=== PATIENT | female | born 1985 | race Caucasian/White ===

== ENCOUNTER 2024-08-14 06:30 | Inpatient (IN) ==
[2024-08-14] MEDS ORDERED: LIDOCAINE 1% LOCAL 20 ML VIAL INFIL PRN (06:54)
--- NOTE | 2024-08-14 06:55 | History & Physical Report ---
Date of Service August 14, 2024 History of Present Illness Chief Complaint: contractions Primary Care Provider: NO PCP Allergies Allergy/AdvReac Type Severity Reaction Status Date / Time No Known Allergies Allergy Verified 08/10/24 10:44 Home Medications Medication Instructions Recorded Confirmed Type magnesium PO 01/06/24 08/10/24 History niacin [Niacor B3] PO 01/06/24 08/10/24 History docosahexaenoic acid [ DHA] PO 06/29/24 08/10/24 History Patient History Medical History SAB (spontaneous ) 2012 2019 with D&C Sp[place] [facility] [place] [facility] Social History (Updated 01/06/24 @ 11:04 by Lizzy Smith) Smoking Status: Former smoker marital status: marital status details: Edwin (34) [phone] Current Living Situation: Spouse Current Living Situation Comment: lives with spouse and 2 children current occupational status: employed 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 No s/s chorio or abruption. Skin: no rashes, warm and dry Psychiatric: A+Ox3, euthymic affect Results & Data Vital Signs (Past 12 Hours) Vital Signs Pulse BP 08/14/24 06:50 78 121/59 L Coding
[2024-08-14 07:19] LABS: Hematocrit (blood only) 35.8 % (37.0-47.0); Hemoglobin 11.8 g/dl (12.0-16.0); Mean Corpuscular Hemoglobin 25.7 pg (25.0-34.0); Mean Corpuscular Volume 77.8 fL (80.0-100.0); Mean Platelet Volume 12.5 fL (9.4-12.4); Platelet Count 143 K/uL (130-400); RDW Coefficient of Variation 15.6 % (11.5-14.5); RDW Standard Deviation 43.3 fL (36.4-46.3)
[2024-08-14] MEDS ORDERED: fentANYL 2 MCG/ML BUPIVacaine 0.125%-NSS 100ML BAG EPI PRN (07:36)
[2024-08-14] MEDS ORDERED: LIDOCAINE 2% MPF LOCAL 5 ML VIAL EPI PRN (07:36)
[2024-08-14] MEDS ORDERED: diphenhydrAMINE 50 MG/ML VIAL IV PRN (07:36)
[2024-08-14] MEDS ORDERED: SODIUM CHLORIDE 0.9% PF INJ 10 ML VIAL EPI PRN (07:36)
[2024-08-14] MEDS ORDERED: NALOXONE HCL 0.4 MG/1 ML VIAL/CARP IV PRN (07:36)
[2024-08-14] MEDS ORDERED: NALOXONE HCL 1 MG in SODIUM CHLORIDE 0.9% 1,000 ML IV PRN (07:36)
[2024-08-14] MEDS ORDERED: fentaNYL citrate PF 100 MCG/2 ML VIAL EPI PRN (07:36)
[2024-08-14] MEDS ORDERED: BUPIVACAINE 0.25% PF 30 ML VIAL EPI PRN (07:36)
[2024-08-14] MEDS ORDERED: ePHEDrine sulfate 50 MG/ML AMP IV PRN (07:36)
[2024-08-14] MEDS ORDERED: ROPIVACAINE 0.5% PF 5 MG/ML 20 ML VIAL EPI PRN (07:36)
[2024-08-14] MEDS ORDERED: NALBUPHINE HCL INJ 10 MG/ML AMP IV PRN (07:36)
--- NOTE | 2024-08-14 07:39 | Anesthesiology Consultation ---
Date of Service August 14, 2024 Assessment & Plan Chart Review Chart Review: Patient NOT seen in Pre Admission Testing and Acceptable Risk for Labor Epidural Consults Requested none ASA ASA2 Proposed Anesthesia Anesthesia Type: Labor Epidural Risk / Benefits Reviewed With: PT / POA / Parent / Guardian, Accepts Plan and Informed Consent Obtained History Height/Weight Height: 5 ft 5 in Weight: 67.132 kg Allergies Allergy/AdvReac Type Severity Reaction Status Date / Time No Known Allergies Allergy Verified 08/10/24 10:44 Medications Home Medications Medication Instructions Recorded Confirmed Last Taken magnesium PO 01/06/24 08/10/24 Unknown niacin [Niacor B3] PO 01/06/24 08/10/24 Unknown docosahexaenoic acid [ DHA] PO 06/29/24 08/10/24 08/13/24 famotidine 20 mg tablet (Pepcid) 20 mg PO DAILY 08/14/24 08/14/24 08/13/24 Active Medications Generic Name Dose Route Start Last Admin Trade Name Freq PRN Reason Stop Dose Admin Lactated Ringer's 1,000 mls @ 125 mls/hr 08/14/24 06:54 08/14/24 07:40 Lr IV 08/15/24 06:53 999 mls/hr .Q8H PRN Administration L&D Protocol Protocol NPO Date Last Intake of Fluids: 08/14/24 Time Last Intake of Fluids: 07:00 Date Last Intake of Solids: 08/13/24 Time Last Intake of Solids: 19:00 Past Medical History Medical History SAB (spontaneous ) 2012 2019 with D&C Spontaneous vaginal delivery 10/2008 [facility] 02/2014 [facility] 03/2015 [facility] Exercise / Class Metabolic Activity 1 > 8 Run/Swim/Ski/Tennis Past Anesthesia History No Hx of Anesthesia Complications and No Family Hx of Anesthesia Complications History of PONV No Hx of PONV and No Hx of Motion Sickness Social History Smoking Status: Former smoker Smoking cigarettes per day: 10/18/2023 Do You Dip or Chew Tobacco: No Hx Alcohol Use: No Hx Substance Use: No Review of Systems ROS Unobtainable: All systems reviewed & are unremarkable except as noted in HPI & below Physical Exam Vital Signs Last Vital Signs Temp 36.6 C 08/14/24 06:57 Pulse 78 08/14/24 06:50 Resp 18 08/14/24 06:57 BP 121/59 L 08/14/24 06:50 ENMT Mouth: no TMJ abnormality Thyromental Distance: > or= 3.5 Finger Breadths Mallampati Class: II Neck normal visual inspection and trachea midline; neck extension not limited Respiratory normal respiratory effort Auscultation: lungs clear to auscultation bilaterally Cardiovascular Rate/Rhythm: regular rate and regular rhythm Heart Sounds: no murmur Musculoskeletal Spine: normal cervical ROM Extremities: full ROM of extremities Neurologic moves all extremities Psychiatric Orientation: alert and oriented x 3 Testing Laboratory Results 08/14/24 07:04
[2024-08-14 07:40] LABS: White Blood Count 11.65 K/ul (4.8-10.8)
[2024-08-14] MEDS: LACTATED RINGER'S 1,000 ML IV PRN (07:40)
[2024-08-14] MEDS: LIDOCAINE 2%/EPINEPHRINE 1:200,000 20 ML PF ONE (08:03)
[2024-08-14] MEDS: fentANYL 2 MCG/ML BUPIVacaine 0.125%-NSS 100ML BAG ONE (08:03)
[2024-08-14] MEDS: BUPIVACAINE 0.25% PF 30 ML VIAL ONE (08:03)
--- NOTE | 2024-08-14 08:30 | History & Physical Report ---
Date of Service August 14, 2024 Assessment & Plan (1) Supervision of elderly multigravida: Plan: 39 yo at 38 3/7 wga presents w/ srom/labor VSS Fetus cat 1 labor - augment prn GBS neg epidural in place Admission and Anticipated Discharge Date Admission Date: August 14, 2024 History of Present Illness Chief Complaint: labor Primary Care Provider: NO PCP 39 yo at 38 3/7 wga presented for prior provider in labor/srom. Just received epidural, was 6cm just before epidural and now comfortable. 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 Date GA wks Lbr Lgth wt Sex Type del Anes Place Del Prov ? Comment Unknown Aborted-Spontaneous 2012 Unknown 14 Aborted-Spontaneous August 2019 D&C 10/24/08 40 7lbs M Epidural Other [facility] N cord around neck, 02/23/14 39 6lbs F None Oth er [facility] N 03/31/15 [facility] All[facility]ies Allergy/AdvReac Type Severity Reaction Status Date / Time No Known Allergies Allergy Verified 08/10/24 10:44 Home Medications Medication Instructions Recorded Confirmed Type magnesium PO 01/06/24 08/10/24 History niacin [Niacor B3] PO 01/06/24 08/10/24 History docosahexaenoic acid [ DHA] PO 06/29/24 08/10/24 History famotidine 20 mg tablet (Pepcid) 20 mg PO DAILY 08/14/24 08/14/24 History Patient History Medical History SAB (spontaneous ) 2012 2019 with D&C Spontaneous vaginal delivery 10/2008 [facility] 02/2014 [facility] 03/2015 [facility] Social History (Updated 01/06/24 @ 11:04 by Lizzy Smith) Smoking Status: Former smoker Tobacco Type: Cigarettes Cigarettes Per Day: 10/18/2023; Second Hand Exposure: No; Do You Dip or Chew Tobacco: No; Tobacco Cessation Education Requested by Patient: No Hx Alcohol Use: No Hx Substance Use: No Preferred Language: Swedish Communication Ability: Effective Auxiliary Engineer Required: No Beliefs That Will Affect Care: None marital status: marital status details: Edwin (34) [phone] Current Living Situation: Spouse Current Living Situation Comment: with spouse and children current occupational status: employed 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 Other Information That Helps Us Care for You: No Feels Safe at Home: Yes Safety Concerns: Afraid for Self Assistive Devices: None Physical Exam Genitourinary: OB Exam Monitor Tracing: + external FHT monitor used, + exte rnal uterine monitor used (q4) and + category I (130/mod/+accel/-decel) Results & Data Vital Signs (Past 12 Hours) Vital Signs Temp Pulse Resp BP Pulse Ox 08/14/24 08:23 72 92/52 L 99 08/14/24 08:18 18 08/14/24 08:18 97.7 F 78 18 100 08/14/24 08:16 71 94/51 L 08/14/24 08:14 71 90/50 L 08/14/24 08:13 74 99 08/14/24 08:12 86 90/55 L 08/14/24 08:10 72 98/53 L 08/14/24 08:08 100 08/14/24 08:08 75 08/14/24 08:08 77 100/54 L 08/14/24 08:06 68 104/58 L 08/14/24 08:04 76 100/57 L 08/14/24 08:03 73 100 08/14/24 08:02 72 113/57 L 88 L 08/14/24 07:59 77 131/86 08/14/24 07:58 79 99 08/14/24 07:53 79 99 08/14/24 07:52 79 92 08/14/24 07:48 76 98 08/14/24 07:43 70 98 08/14/24 06:57 97.9 F 18 08/14/24 06:50 98.1 F 78 18 121/59 L Laboratory Results OB Labs: Blood Type O Positive 01/13/24 Antibody Screen NEGATIVE 01/13/24 Hgb 10.9 g/dl (12.0-16.0) L 07/11/24 Hct 33.1 % (37.0-47.0) L 07/11/24 MCV 78.5 fL (80.0-100.0) L 01/13/24 Plt Count 221 K/uL (130-400) 01/13/24 Rubella IgG Antibody Immune (Immune) 01/13/24 Treponema pallidum Ab Negative (Negative) 06/02/24 Hep Bs Antigen Negative (Negative) 01/13/24 Hepatitis C Antibody Negative (Negative) 01/13/24 HIV 1&2 Ab/P24 Ag 4thGn Negative (Negative) 01/13/24 Glucose 1 Hr 50 gm 91 mg/dl (70-130) 06/02/24 OB Optional Labs: Chlamydia trachomatis RNA Not Detected (NotDetected) 01/13/24 Neisseria gonorrhoeae RNA Not Detected (NotDetected) 01/13/24 Labs Reviewed: hep B nonimmune--akh gbs neg Coding Level of Care Code None Diagnoses Supervision of elderly multigravida O09.529
[2024-08-14] MEDS: OXYTOCIN 30 UNITS/NSS 30 UNITS/500 ML BAG IV PRN (11:44)
--- NOTE | 2024-08-14 11:57 | Delivery Summary ---
Vaginal Delivery Summary Date of Service August 14, 2024 Vaginal Delivery Summary [facility] PREOPERATIVE DIAGNOSIS: 1. Single intrauterine at 38 3/7 wga 2. SROM 3. AMA POSTOPERATIVE DIAGNOSIS: 1. Single intrauterine at 38 3/7 wga 2. SROM 3. AMA 4. Delivered PROCEDURE: 1. Normal spontaneous vaginal delivery. SURGEON: Amy Marquez MD ANESTHESIA: Epidural. QUANTITATIVE BLOOD LOSS: 17 mL FLUIDS: Continuous LR. URINE OUTPUT: None. COMPLICATIONS: None. CONDITION: Stable. INDICATIONS: 39 yo at 38 3/7 wga presented this morning with ROM and labor. She progressed spontaneously and received an epidural for pain control. She progressed to complete and desired to push FINDINGS: A viable male , weight pending with Apgars of 8 and 8 at 1 and 5 minutes respectively. SPECIMEN: Cord blood OPERATIVE REPORT: The patient progressed to 10 cm, 100% effaced and +2 station, pushed over intact perineum with anesthesia to deliver a viable male infant, weight and Apgars as above. Head of delivered in NATHALY position. Nuchal cord delivered through due to rapidity of delivery. Body and shoulders were delivered without difficulty. was delivered to maternal abdomen and nursing staff. Delayed cord clamping was performed for 60 seconds. Cord was clamped and cut. Cord blood was obtained. Placenta delivered spontaneously intact with 3-vessel cord. IV oxytocin and fundal massage were given for excellent hemostasis. Vagina, cervix, perineum, and placenta were inspected. Hemostatic abrasion was noted on bilateral labia and did not need repaired. Sponge and needle counts correct x2. No sponges were left behind. Mother and stable in immediate period. [facility] Vaginal Delivery Charge Vaginal Delivery Codes: 83361 global code for the antepartum, delivery, and post- Delivery Type Details: [facility]
[2024-08-14] MEDS ORDERED: bisacodyL 10 MG SUPP PR PRN (12:03)
[2024-08-14] MEDS ORDERED: OXYTOCIN 30 UNITS/NSS 30 UNITS/500 ML BAG IV PRN (12:03)
[2024-08-14] MEDS ORDERED: HYDROCORTISONE ACETATE 25 MG SUPP PR PRN (12:03)
--- NOTE | 2024-08-14 12:17 | Anesthesia Procedure Note ---
Date of Service August 14, 2024 Anesthesia Post Epidural Note Vital Signs Vital Signs: Temp Pulse Resp BP Pulse Ox 36.7 C 77 18 116/55 L 98 08/14/24 10:00 08/14/24 12:03 08/14/24 12:04 08/14/24 12:03 08/14/24 11:38 Pain Intensity Abdomen: Pain Intensity: 4 Notes Mental Status: alert / awake / arousable and participated in evaluation Nausea / Vomiting: adequately controlled Pain: adequately controlled Airway Patency, RR, SpO2: stable & adequate BP & HR: stable & adequate Hydration State: stable & adequate Neuraxial Anesthesia: was administered and sensory block is resolving Anesthetic Complications: no major complications apparent Epidural: Removed without complications and With tip intact
[2024-08-14] MEDS: ePHEDrine sulfate 50 MG/ML AMP ONE (12:30)
[2024-08-14] MEDS: fentaNYL citrate PF 100 MCG/2 ML VIAL ONE (12:30)
[2024-08-14] MEDS: fentaNYL citrate PF 100 MCG/2 ML VIAL EPI STA (12:30)
[2024-08-14] MEDS: BUPIVACAINE 0.25% PF 30 ML VIAL EPI STA (12:30)
[2024-08-14] MEDS: SODIUM CHLORIDE 0.9% PF INJ 10 ML VIAL ONE (12:30)
[2024-08-14] MEDS: SODIUM CHLORIDE 0.9% PF INJ 10 ML VIAL EPI STA (12:31)
[2024-08-14] MEDS: LIDOCAINE 2%/EPINEPHRINE 1:200,000 20 ML PF EPI STA (12:31)
[2024-08-14] MEDS: DIPHTHER/TETAN/PERTUS Vaccine (Tdap, Adol/Adult) 0.5mL IM ONE (13:53)
[2024-08-14] MEDS: BENZOCAINE 20% SPRY 85 APPLN/85 GM CAN EXT PRN (16:26)
[2024-08-14] MEDS: IBUPROFEN 600 MG TAB PO PRN (16:26)
[2024-08-14] MEDS: ACETAMINOPHEN 325 MG TAB PO PRN (20:12)
[2024-08-14] MEDS: DOCUSATE SODIUM 100 MG CAP PO SCH (20:12)
--- NOTE | 2024-08-15 08:01 | Obstetrical Progress Note ---
Date of Service August 15, 2024 Assessment & Plan (1) Encounter for care and examination after delivery: 39 yo PP1 from , doing well -Meeting all pp milestones -O+/rubella immune/ -f/u 6 weeks for appt, desires dc today Subjective Ambulation: ambulating normally Voiding: no voiding problems Passing Gas:: Yes Diet Tolerance:: regular diet Lochia:: Small Feeding Type:: breast feeding Pain well managed with medication Review of Systems Denies fevers, chills, n/v, MA, CP, SOB Physical Exam Constitutional WD/WN, vitals as above no acute distress Respiratory normal respiratory effort, lungs clear to auscultation Cardiovascular RRR, no murmur, no edema Gastrointestinal (Abdomen) Percussion/Palpation: abdomen soft; abdomen nontender fundus firm at umbilicus and NT Musculoskeletal BLE symmetric, nonerythematous, nontender Results & Data Vital Signs (Past 12 Hours) Vital Signs Temp Pulse Resp BP Pulse Ox O2 Del Method 08/15/24 04:00 98.2 F 70 15 109/76 98 Room Air 08/14/24 23:30 97.7 F 72 16 99/64 L 99 Room Air 08/14/24 20:15 97.9 F 80 17 100/63 98 Room Air
[2024-08-15] MEDS: PRENATAL VITAMIN 1 TAB PO SCH (08:30)
[2024-08-15 10:52] VITALS: RESP 18; TEMP 98.4
[2024-08-15 13:57] VITALS: BP 114/67; PULSE 83; O2SAT 96
[2024-08-15] MEDS ORDERED: bisacodyL 5 MG TABEC PO SCH (20:00)
== END 2024-08-15 16:00 | disposition home or self-care (01) | DRG 807 ==
LOC: OPB 06:30 → 4S1 06:33 → 4E2 13:32